=== PATIENT | male | born 1985 | race Caucasian/White ===

== ENCOUNTER → 2016-05-21 | Outpatient (CLI) | payer OTHER ==
[~2016-05-21] MED LIST: GADOBUTROL 7.5 MMOL/7.5 ML VIAL IV ONE; TOPI25TA32 PO
--- NOTE | 2016-05-21 10:47 | KCIC ---
PROCEDURE MRI brain with and without contrast. HISTORY Chronic headaches. Migraines. Blurred vision. TECHNIQUE Sagittal T1, axial T1, axial T2, axial FLAIR, axial T2 gradient, diffusion imaging with ADC map, post-contrast axial, and post-contrast coronal sequences are provided. 7 milliliters of intravenous Gadavist was administered without complication. COMPARISON None. FINDINGS The ventricles and sulci are within normal limits for age. There is no acute intracranial hemorrhage or extra-axial fluid collection. There is no mass effect or midline shift. There is no restricted diffusion to suggest an acute infarct. There is no pathologic enhancement. Cervicomedullary junction is unremarkable. Intracranial flow voids are preserved. There are retention cysts in both maxillary sinuses, small, along with minimal maxillary mucosal thickening and ethmoid mucosal thickening. IMPRESSION No acute intracranial findings. Electronically signed by: Inderjit Tavera MD (May 21, 2016 10:45:07)
== END | disposition home or self-care (01) ==
LOC: KCIC MRI 09:14
PROVIDERS: ATTEND Psychiatry & Neurology Neurology
DX: G43.909 Migraine, unspecified, not intractable, without status migrainosus (principal); H53.8 Other visual disturbances
CPT/HCPCS: 70553; A9585